=== PATIENT | female | born 1960 | race Hispanic/Latino ===

== ENCOUNTER 2022-12-30 10:01 | Emergency (ER) | payer BC ==
[2022-12-30] MEDS ORDERED: Erythromycin Base 0.5% Oint 1 GM TUBE ONE (10:19)
[2022-12-30] MEDS ORDERED: Mineral Oil Sterile 10 ML VIAL FS SCH (10:30)
[2022-12-30] MEDS ORDERED: MINERAL OIL/WHITE PETROLATUM 3.5 GM TUBE L EYE SCH (10:30)
== END 2022-12-30 11:46 | disposition home or self-care (01) ==
LOC: CSHERS 10:01
DX: H02.89 Other specified disorders of eyelid (principal); E11.9 Type 2 diabetes mellitus without complications
CPT/HCPCS: 99283

== ENCOUNTER 2023-04-08 22:29 | Emergency (ER) | payer BC ==
[2023-04-09] MEDS ORDERED: Dexamethasone 4 MG TAB ONE (01:32)
[2023-04-09] MEDS ORDERED: Ibuprofen 200 MG TAB ONE (01:32)
== END 2023-04-09 01:40 | disposition home or self-care (01) ==
LOC: CSHERS 22:29
DX: J02.8 Acute pharyngitis due to other specified organisms (principal); E11.9 Type 2 diabetes mellitus without complications; Z79.84 Long term (current) use of oral hypoglycemic drugs
CPT/HCPCS: 99283; J8540